=== PATIENT | female | born 1945 | race Caucasian/White ===

== ENCOUNTER → 2017-09-03 | Outpatient (REF) | payer MEDICARE | LOC: M LAB REF 17:01 | DX: N39.0 Urinary tract infection, site not specified (principal) | CPT/HCPCS: 87086 ==

== ENCOUNTER → 2019-03-10 | Outpatient (REF) | payer MEDICARE ==
[~2019-03-10] MED LIST: ACET65TA OR; ATENPOW PO; COUM1TAB18 OR; GLYBPOW PO; GLYPIZIDE PO; JANUMET PO; NAPRPOW4 PO; NEURONTIN PO; PERC5TAB8 OR; PERC7.5T8 OR; SERTRALINE PO; SIMVASTIN PO; TRAM50TA2 OR; TRAMADOL PO
[2019-03-10 19:34] LABS: FREE T4 0.84 NG/DL (0.76-1.46); THYROID STIMULATING HORMONE 3.79 uIU/ML (0.358-3.740)
== END ==
LOC: M LAB REF 18:23
PROVIDERS: ATTEND Internal Medicine Nephrology
DX: E03.9 Hypothyroidism, unspecified (principal)

== ENCOUNTER → 2019-11-14 | Outpatient (REF) | payer MEDICARE | LOC: M LAB REF 17:41 | PROVIDERS: ATTEND Internal Medicine Nephrology | DX: N39.0 Urinary tract infection, site not specified (principal) ==

== ENCOUNTER → 2021-03-18 | Outpatient (REF) | payer MEDICARE | LOC: M LAB REF 16:48 | PROVIDERS: ATTEND Internal Medicine Nephrology | DX: E83.42 Hypomagnesemia (principal); N39.0 Urinary tract infection, site not specified ==

== ENCOUNTER → 2023-07-24 | Outpatient (CLI) | payer MEDICARE, MEDICAID ==
[2023-07-24 14:19] LABS: BASO # 0.1 10^3/uL (0.0-0.2); BASO % 0.7 % (0.0-1.0); EOS # 0.2 10^3/uL (0.0-0.5); EOS % 2.3 % (0.0-3.0); HEMOGLOBIN 11.4 g/dl (12.0-15.5); LYMPH # 1.6 10^3/uL (1.5-5.0); MEAN CORPUSCULAR HEMOGLOBIN 29.9 pg (27.0-33.0); MEAN CORPUSCULAR HGB CONC 31.7 g/dl (32.0-36.5); MEAN CORPUSCULAR VOLUME 94.5 fl (80.0-96.0); MONO # 0.6 10^3/uL (0.0-0.8); MONO % 5.7 % (2.0-8.0); NEUTROPHILS # 7.9 10^3/uL (1.5-8.5); PLATELET COUNT, AUTOMATED 353 10^3/uL (150-450); RED BLOOD COUNT 3.81 10^6/uL (4.00-5.40); WHITE BLOOD COUNT 10.4 10^3/uL (4.0-10.0)
[2023-07-24 14:33] LABS: HEMOGLOBIN A1c 7.8 % (4.0-6.0)
[2023-07-24 14:38] LABS: ERYTHROCYTE SEDIMENTATION RATE 79 mm/hr (0-30)
[2023-07-24 14:58] LABS: ALBUMIN 3.1 G/DL (3.2-5.2); ALKALINE PHOSPHATASE 109 U/L (46-116); ALT/SGPT < 9 U/L (7.0-40); AST/SGOT 15 U/L (<34); BILIRUBIN,TOTAL 0.5 MG/DL (0.3-1.2); BLOOD UREA NITROGEN 27 MG/DL (9-23); CARBON DIOXIDE LEVEL 31 MMOL/L (20-31); CHLORIDE LEVEL 100 MMOL/L (98-107); CREATININE FOR GFR 1.44 MG/DL (0.55-1.30); GLOMERULAR FILTRATION RATE 37.5 (>39); GLUCOSE, FASTING 217 MG/DL (74-106); POTASSIUM SERUM 4.5 MMOL/L (3.5-5.1); SODIUM LEVEL 138 MMOL/L (136-145); TOTAL PROTEIN 6.7 G/DL (5.7-8.2)
[2023-07-24 15:00] LABS: FOLATE > 24.0 NG/ML (>5.4); T UPTAKE 30.7 % (22.5-37.0); THYROID STIMULATING HORMONE 2.407 uIU/ML (0.55-4.78); VITAMIN B12 LEVEL 355 PG/ML (211-911)
[2023-07-24 20:58] LABS: FREE THYROXINE INDEX 2.3 % (1.3-4.8); THYROXINE (T4) 7.5 UG/DL (4.5-10.9)
[2023-07-25 15:59] LABS: CALCIUM LEVEL 8.8 MG/DL (8.3-10.6)
== END ==
LOC: M PLALAB 11:21
PROVIDERS: ATTEND Psychiatry & Neurology Neurology
DX: E07.9 Disorder of thyroid, unspecified (principal); E53.8 Deficiency of other specified B group vitamins; G62.9 Polyneuropathy, unspecified; Z79.899 Other long term (current) drug therapy

== ENCOUNTER 2024-12-19 13:30 | Outpatient (RCR) | payer MEDICARE, MEDICAID | END 2024-12-28 23:59 | disposition home or self-care (01) | LOC: M PT 13:30 | PROVIDERS: ATTEND Nurse Practitioner Family | DX: I89.0 Lymphedema, not elsewhere classified (principal) ==